=== PATIENT | female | born 1990 | race Hispanic/Latino ===

== ENCOUNTER 2016-05-04 22:31 | Emergency (ER) | payer OTHER ==
[~2016-05-04] VITALS: Ht 152.4 cm; Wt 86.4 kg
[~2016-05-04 22:31] MED LIST: OXYC1TAB24 PO
[2016-05-04 22:57] VITALS: BP 109/77; PULSE 95; RESP 16; O2SAT 100
[2016-05-04 23:33] LABS: BASOPHILS % (AUTO) 0.2 % (0-3); EOSINOPHILS % (AUTO) 0.4 % (0-5); MONOCYTES % (AUTO) 5.7 % (4-12); Mean Corpuscular Hemoglobin 27.8 pg (27.0-35.0); Mean Corpuscular Volume 83.8 fL (81-100); Platelet Count 291 bil/L (150-400)
[2016-05-04 23:52] LABS: APPEARANCE,URINE HAZY (CLEAR,HAZY); COLOR,URINE DARK YELLOW (YELLOW); OCCULT BLOOD,URINE NEGATIVE (NEGATIVE)
[2016-05-04 23:56] LABS: Magnesium 1.9 mg/dL (1.6-2.6)
[2016-05-05 00:08] LABS: ICTOTEST,URINE POSITIVE (Negative)
--- NOTE | 2016-05-05 00:10 | ED.REPORT ---
HPI-NVD Date of Service May 05, 2016 ED Provider: Suze Spain MD This is a 25 year old female who is 11 weeks presenting to the emergency department complaining of nausea and vomiting that began 12 hours ago. Unable to keep PO down. Denies hematemesis, abdominal pain, dysuria, hematuria, diarrhea, constipation, fever, or chills. Denies recent sick contacts. LMP 01/22/2016. . Nursing Notes Stated Complaint: VOMITING/WEAK Chief Complaint: Female Abdominal Pain Nursing Notes Reviewed: Yes Allergies: Coded Allergies: No Known Allergies (Verified Allergy, Unknown, 05/04/16) Scheduled Cephalexin (Keflex) 500 Mg Capsule 500 MG PO QID Scheduled PRN oxyCODONE-Acetaminophen 5-325 mg (oxyCODONE-Acetaminophen 5-325 mg) 1 Tab Tablet 1-2 TAB PO Q4H PRN PRN For Severe Pain General Time Seen by MD: 00:10 Chief Complaint Nausea Hx Obtained From: Patient Arrived By: Walk-in Onset Occurred: 9 - 12 hours ago Symptom Duration: Since onset Severity: Current: No pain currently Pertinent Negative: Pt denies other symptoms Recent Healthcare: No recent doctor visit, No recent hospitalization Similar Sx Previous: No Past Medical History Past Medical History 11 weeks on 05/05/16 Past Surgical History None Smoking History Never Smoker Social History Alcohol Use: "Social" Drug Use: Denies drug use Other Social History: Good social support Ambulatory Status Independent Review of Systems Constitutional: Denies: Chills, Fever GI: Reports: Nausea, Vomiting, Denies: Abdominal pain, Constipation, Diarrhea, Hematemesis, Hematochezia Neurologic: Denies: Headache Complete sys rev & neg: except as marked. Physical Exam Initial Vital Signs Vital Signs (First) Date Time Temp Pulse Resp B/P Pulse Ox O2 Delivery O2 Flow Rate FiO2 05/04/16 22:57 36.5 95 16 109/77 100 Room Air Initial VS: Reviewed Head / Eyes: Atraumatic, Normocephalic, PERRL ENT: Mucous membranes moist, Conjunctiva normal, No scleral icterus Neck: Supple, Non-tender, Full range of motion Respiratory: Breath sounds normal, Clear to auscultation, No respiratory distress Cardiovascular: Regular rate & rhythm, Heart sounds normal, Intact distal pulses Extremities: Vascular intact, Neuro intact, No swelling, No tenderness Skin: Warm, Dry, No cyanosis Neurologic: Alert, Oriented, Nonfocal Psychiatric: Mood/affect normal, Behavior normal, Normal thought content General/Constitutional: Awake, Alert Abdomen: Soft, Non-tender, McBurney's non-tender, No guarding, No rebound, BS normoactive Interpretation & Diagnostics Lab Results Interpretation Result Diagram: 05/04/162 05/04/16 2322 Test 05/04/16 23:22 05/04/16 23:32 White Blood Count 10.5th/mm3 (3.8-10.1) Red Blood Count 4.39mil/mm3 (3.90-5.20) Hemoglobin 12.2g/dL (12.0-15.6) Hematocrit 36.8% (35.0-46.0) Mean Corpuscular Volume 83.8fL (81-100) Mean Corpuscular Hemoglobin 27.8pg (27.0-35.0) Mean Corpuscular Hemoglobin Concent 33.2% (32.0-37.0) Red Cell Distribution Width 12.9% (12.3-15.4) Platelet Count 291bil/L (150-400) Neutrophils (%) (Auto) 75.0% (40-74) Lymphocytes (%) (Auto) 18.5% (14-46) Monocytes (%) (Auto) 5.7% (4-12) Eosinophils (%) (Auto) 0.4% (0-5) Basophils (%) (Auto) 0.2% (0-3) Sodium Level 136mEq/L (134-144) Potassium Level 4.0mEq/L (3.5-5.2) Chloride Level 99mEq/L (97-108) Carbon Dioxide Level 24mmol/L (18-29) Blood Urea Nitrogen 10mg/dL (6-20) Creatinine 0.48mg/dL (0.57-1.00) Estimat Glomerular Filtration Rate 228mL/min (>59) Glucose Level 102mg/dL (60-99) Calcium Level 9.0mg/dL (8.5-10.1) Magnesium Level 1.9mg/dL (1.6-2.6) Total Bilirubin 0.7mg/dL (0.0-1.2) Aspartate Amino Transf (AST/SGOT) 15U/L (0-50) Alanine Aminotransferase (ALT/SGPT) 11U/L (0-32) Alkaline Phosphatase 77U/L (25-150) Total Protein 7.0g/dL (6.4-8.4) Albumin 3.9g/dL (3.4-5.0) Lipase 29U/L (13-60) Urine Color Dark yellow (YELLOW) Urine Appearance Hazy (CLEAR,HAZY) Urine pH 7.0 (5.0-8.0) Urine Specific [place] 1.020 (1.003-1.035) Urine Protein Negativemg/dL (NEG,TRACE) Urine Glucose (UA) Negativemg/dL (NEGATIVE) Urine Ketones Tracemg/dL (NEGATIVE) Urine Occult Blood Negative (NEGATIVE) Urine Nitrite Negative (NEGATIVE) Urine Bilirubin Small (NEGATIVE) Urine Ictotest Positive (Negative) Urine Urobilinogen 1.0mg/dL (NORMAL) Urine Leukocyte Esterase Moderate (NEGATIVE) Urine RBC 0-2/hpf (0-2) Urine WBC 6-10/hpf (0-5) Urine Epithelial Cells Moderate/hpf (NONE-MOD) Urine Crystals Amorphous urates (NONE Urine Bacteria Few/hpf (NONE-FEW) Urine Hyaline Casts None/lpf (NONE) Urine Granular Casts None seen (NONE SEEN) Urine Waxy Casts None seen (NONE SEEN) Urine Red Blood Cell Casts None seen (NONE SEEN) Urine White Blood Cell Casts None seen (NONE SEEN) Urine Mucus Present (None Seen) Urine Trichomonas None seen (NONE SEEN) Urine Yeast None (NONE SEEN) Urinalysis Comment None Urine Culture Reflexed Indicated Re-Eval/Medical Decision Med Decision/Clinical Course 25-year-old female who is approximately 11 weeks here with nausea and vomiting. Differential diagnosis includes but is not limited to urinary tract infection versus hyperemesis gravidarum versus viral versus bacterial gastroenteritis. Patient has UTI on urinalysis. She has very mild leukocytosis on CBC. CMP is unremarkable. She was given Reglan in the emergency department, and was able to tolerate a by mouth challenge. She was also given Rocephin as her first dose of antibiotics for UTI. She was discharged with prescription for Keflex, advised to take Unisom and B6 for nausea and vomiting, and given very strict return precautions. She is aware and amenable to discharge at this time with follow-up with her primary care physician Re-Evaluation/Progress : Time of Eval: 02:51 Re-Evaluation/Progress Note: Tolerated PO, plan for d/c, all questions addressed. Counseled Regarding: Diagnosis, Lab results, Need for follow-up, When/why to return to ED Discharge & Departure Impression: Primary Impression: Urinary tract infection Urinary tract infection type: site unspecified Hematuria presence: without hematuria Qualified Code: N39.0 - Urinary tract infection, site not specified Disposition: Home Discharge Condition All VS Reviewed: Yes Condition: Stable Patient Instructions: Urinary Tract Infection in Women (ED) Additional Instructions: Take Keflex as prescribed. Visit a pharmacy and begin taking vitamin B6 and Unisom for nausea control. Follow-up with your primary care provider. Return to the emergency department for any new or worsening symptoms Referrals: [facility] Scribe Attestation Portions of this note were transcribed by Re Moreno. I, Dr. Spain personally performed the history, physical exam and medical decision-making; I reviewed and confirmed the accuracy of the information in the transcribed note. Signed by: bobby Carballo. 05/04/2016, 03:00. Suze Spain MD May 05, 2016 00:10 RE MORENO May 05, 2016 00:13
[2016-05-05] MEDS ORDERED: 0.9% Sodium Chloride 1,000 ML IV ONE (00:22)
[2016-05-05] MEDS ORDERED: cefTRIAXone Inj 1,000 MG in Dextrose 5% Minibag Plus 50 ML IV SCH (00:25)
[2016-05-05 01:10] VITALS: BP 116/72; PULSE 88; RESP 14; O2SAT 99
[2016-05-05] MEDS ORDERED: CEPH-512 PO (01:25)
[2016-05-05] MEDS ORDERED: MetoCLOpramide 5 mg/mL 2 mL Inj IVPUSH PRN (01:40)
[2016-05-05 03:43] VITALS: BP 120/70; PULSE 82; RESP 16; O2SAT 100
== END 2016-05-05 03:44 | disposition home or self-care (01) ==
LOC: SED 22:31
DX: O23.41 Unspecified infection of urinary tract in pregnancy, first trimester (principal); O21.0 Mild hyperemesis gravidarum; Z3A.11 11 weeks gestation of pregnancy
CPT/HCPCS: 36415; 80053; 81000; 81025; 83690; 83735; 85025; 87086; 87088; 96365; 96375; 99285; J0696; J2765; J7030

== ENCOUNTER 2016-06-06 12:59 | Emergency (ER) | payer OTHER ==
[~2016-06-06] VITALS: Ht 152.4 cm; Wt 81.8 kg
[~2016-06-06 12:59] MED LIST changes: +CEPH-512 PO
[2016-06-06 13:05] VITALS: BP 92/67; PULSE 104; RESP 16; O2SAT 100
[2016-06-06] MEDS ORDERED: PREN-12 PO (13:09)
--- NOTE | 2016-06-06 13:22 | ED.REPORT ---
HPI-Hand Prob/Inj Date of Service Jun 06, 2016 ED Provider: Norm Bonds MD 26 year old female who is 15 weeks presents to the ER with R thumb pain following a fall today. Pt reports pain with movement. Pt denies any other injury. Nursing Notes Stated Complaint: RIGHT HAND INJURY Chief Complaint: Extremity Trauma Nursing Notes Reviewed: Yes Allergies: Coded Allergies: No Known Allergies (Verified Allergy, Unknown, 05/04/16) Scheduled Vit W-Ca,Fe,FA(<1 mg) ( Formula) 1 Each Tablet 1 EACH PO DAILY General Time Seen by Provider: 13:20 Chief Complaint Hand pain right Hx Obtained From: Patient Arrived By: Walk-in Onset Occurred: 1 - 4 hours ago Symptom Duration: Since onset Location: Right Hand: : Finger... (Thumb) Quality: Painful Severity: Current: Moderate Exacerbated by: Movement Past Medical History Past Medical History 15 weeks on 06/06/16 Denies: Asthma, Diabetes mellitus, Hypertension Past Surgical History None Smoking History Never Smoker Social History Alcohol Use: "Social" Drug Use: Denies drug use Other Social History: Good social support Ambulatory Status Independent Review of Systems Basic Review of Systems Eyes: Vision NL, No discharge ENT: Hearing NL, No pain, No nasal congestion, No pharyngeal pain Respiratory: No shortness of breath, No cough, No wheeze Cardiovascular: No chest pain, No dyspnea on exertion, No orthopnea, No parox noct dyspnea, No palpitations GI: No abdominal pain, No anorexia, No nausea, No vomiting Allergy / Immune: No allergy Psychiatric: Normal thought content Constitutional: Denies: Fever Musculoskeletal: Reports: Extremity pain, Denies: Neck pain Neurologic: Denies: Change LOC, Headache Complete sys rev & neg: except as marked. Physical Exam Initial Vital Signs Vital Signs (First) Date Time Temp Pulse Resp B/P Pulse Ox O2 Delivery O2 Flow Rate FiO2 06/06/16 13:05 36.9 104 16 92/67 100 Room Air Initial VS: Reviewed General/Constitutional: Well-developed, Well-nourished Head / Eyes: Atraumatic, Normocephalic, PERRL ENT: Conjunctiva normal, No scleral icterus Neck: Full range of motion Respiratory: No respiratory distress Skin: Warm, Dry Neurologic: Alert, Oriented Wrist / Hand: Neurologic intact, Vascular intact Contusion of R thumn. No deformity. Limited ROM of thumb secondary to pain. FROM of all other fingers, and wrist. Interpretation & Diagnostics X-Ray Interpretation Xray Interpretation: IMPRESSION: No fracture. No osseous lesion. If there are persistent symptoms or clinical suspicion for pathology, then repeat radiographs or advanced imaging (CT, MRI or bone scan) should be considered for further evaluation. Dictated by: Jackie Kan MD, PhD on 06/06/2016 at 13:59 Study Performed: R fingers Interpretation / Wet Read by: Interpret - Radiologist Procedures Splint Application - Fx Mgt Time: 14:18 Procedure Performed by: Economics Consultant Precise Anatomic Location: R hand Type of immobilization: Velcro thumb spica Definitive Fracture Care: Pain control Post-Procedure / Complications: Cap refill normal, Post splint vascular nl, Post splint neuro nl, Condition improved, Tolerated procedure well, Patient stable Re-Eval/Medical Decision Re-Evaluation/Progress : Time of Eval: 14:12 Re-Evaluation/Progress Note: Discussed plan for discharge and follow up. All questions addressed. Counseled Regarding: Diagnosis, Need for follow-up, When/why to return to ED Discharge & Departure Primary Impression: Contusion of right thumb Encounter type: initial encounter Damage to nail status: without damage Qualified Code: S60.011A - Contusion of right thumb without damage to nail, initial encounter Disposition: Home Discharge Condition All VS Reviewed: Yes Condition: Improved Patient Instructions: Splint Care (ED), Contusions in Adults (ED) Additional Instructions: There was no fracture or dislocation identified on x-ray today. For pain/swelling you can use ice, ibuprofen and the splint. If the pain persist for 1 week, schedule a follow up with your primary care physician. Referrals: NOPCP (PCP) Scribe Attestation Portions of this note were transcribed by Oriana Vitale. I, (Dr. Bonds) personally performed the history, physical exam and medical decision-making; I reviewed and confirmed the accuracy of the information in the transcribed note. Signed by: Oriana Vitale. Anderson, 06/06/2016, 1411 Norm Bonds MD Jun 06, 2016 13:22 Oriana Vitale Jun 06, 2016 14:13
--- NOTE | 2016-06-06 14:01 | DRSVH ---
PROCEDURE: X-RAY FINGERS, TWO VIEWS INDICATIONS: fall , trauma TECHNIQUE: AP hand, 3 views of the right first finger(s) acquired. COMPARISON: None. FINDINGS: Bones: No fractures or dislocations. No suspicious bony lesions. Soft tissues: No suspicious soft tissue calcifications. IMPRESSION: No fracture. No osseous lesion. If there are persistent symptoms or clinical suspicion f or pathology, then repeat radiographs or advanced imaging (CT, MRI or bone scan) should be considered for further evaluation. Dictated by: Jackie Kan MD, PhD on 06/06/2016 at 13:59 Approved by: Jackie Kan MD, PhD on 06/06/2016 at 13:59
== END 2016-06-06 14:30 | disposition home or self-care (01) ==
LOC: SED 12:59
DX: O9A.212 Injury, poisoning and certain other consequences of external causes complicating pregnancy, second trimester (principal); S60.011A Contusion of right thumb without damage to nail, initial encounter; W19.XXXA Unspecified fall, initial encounter; Y93.9 Activity, unspecified; Y92.9 Unspecified place or not applicable; Y99.9 Unspecified external cause status; Z3A.15 15 weeks gestation of pregnancy